=== PATIENT | male | born 1960 | race Caucasian/White ===

== ENCOUNTER 2020-03-21 13:30 | Emergency (ER) | payer OTHER, SELFPAY ==
[2020-03-21 13:40] VITALS: BP 114/67; PULSE 71; RESP 18; TEMP 36.8; O2SAT 96; BMI 21.5
--- NOTE | 2020-03-21 14:02 | ED_ITS ---
HPI - Fall General: Chief Complaint: Fall Stated Complaint: right foot pain/fall Time Seen by Provider: 03/21/20 13:42 History of Present Illness: HPI Narrative: 60-year-old male states that last night he was sitting in a recliner been sitting there for some time started to get some positional numbness of his foot when he went to get up and walk the foot remains numb and he actually tripped and stumbled has severe right foot pain has been only partial weightbearing on it. No previous injury of that foot is not taking anything for pain up to this point he had no other injuries at the time of the fall. Denies any other recent illnesses or injuries no exposure to COVID's review of systems is otherwise negative. MD complaint: fall Onset (ago): day(s) (1) Fall from: standing Fall witnessed: no Place fall occurred: home Loss of consciousness: None Prolonged down time: no Symptoms prior to fall: other (Numbness in extremity) Location of injury - extremities: Right: foot Severity: moderate Severity scale (1-10): 7 Quality: sharp Associated symptoms-after fall: Reports no associated symptoms; Denies abdominal pain or chest pain Review of Systems Const: Denies: fever(s), chills, body aches, change in appetite, fatigue or malaise ENMT: Denies: throat pain, ear or mastoid pain, nasal discharge or nasal congestion Card: Denies: chest pain, edema, dyspnea on exertion or orthopnea Resp: Denies: dyspnea, productive cough or non-productive cough GI: Denies: abdominal pain, nausea, vomiting, hematemesis, coffee ground emesis, diarrhea, constipation, bloating, hematochezia or melena : Denies: flank pain, dysuria, urinary frequency or urinary urgency Skin/Breast: Denies: rash or pruritus PFSH ED PFSH: Medical History (Updated 03/21/20 @ 14:31 by Joaquín Sommer DO) Concussion Hypertension Spinal cord injury Surgical History (Updated 03/21/20 @ 14:05 by Joaquín Sommer DO) H/O cervical spine surgery History of lumbosacral spine surgery Social History Smoking and tobacco status: current every day smoker Physical Exam Const: COMMON NORMALS: no acute distress GENERAL APPEARANCE: cooperative and comfortable ORIENTATION/CONSCIOUSNESS: Yes awake, Yes oriented to person, Yes oriented to place and Yes oriented to time Eye: COMMON NORMALS: Equal, round and reactive pupils present, EOMs intact bilaterally, conjunctivae normal and no scleral icterus CONJUNCTIVA: Yes conjunctivae normal PUPIL: Yes Equal, round and reactive pupils present Neck/C-Spine: COMMON NORMALS: full ROM, no lymphadenopathy, supple and no JVD Lymph: LYMPHATIC: no lymphadenopathy noted and no lymphedema noted Resp: COMMON NORMALS: normal respiratory effort, No retractions, No use of accessory muscles and clear to auscultation bilaterally AUSCULTATION: clear to auscultation bilaterally Cardio: COMMON NORMALS: no JVD, regular rate, regular rhythm and No murmurs present (Cardio) RATE: regular rate RHYTHM: regular rhythm GI: COMMON NORMALS: Soft to palpation and No hepatosplenomegaly present AUSCULTATION: Yes normoactive bowel sounds PALPATION: Yes Soft to palpation, No Tenderness to palpation present (GI), No Guarding due to palpation present (GI) and Yes No hepatosplenomegaly present Extremity: NARRATIVE EXTREMITY EXAM: With palpation of the forefoot at the tarsometatarsal joint with some prominence of the joint no edema. Neuro: SENSORIUM/ORIENTATION: Yes oriented to person, Yes oriented to place a nd Yes oriented to time Skin: COMMON NORMALS: no rashes or lesions noted GENERAL SKIN EXAM: no rashes or lesions noted Course Vital Signs: Vital signs: Vital Signs Temperature 98.2 F 03/21/20 13:40 Pulse Rate 70 03/21/20 15:07 Respiratory Rate 16 03/21/20 15:07 Blood Pressure 115/85 03/21/20 15:07 Pulse Oximetry 98 03/21/20 15:07 MDM - Fall MDM Narrative: Medical decision making narrative: No acute fracture. Rest ice elevation compression anti-inflammatories weightbearing as tolerated Imaging Data^: Other Xray: Radiologist's impression: PROCEDURE INFORMATION: Exam: XR Right Foot Complete Exam date and time: 03/21/2020 2:26 PM Age: 60 years old Clinical indication: Injury or trauma; Fall; Initial encounter; Blunt trauma; Right; Injury date: 03/20/2020; Injury details: Lateral foot pain; Additional info: Pain, trauma TECHNIQUE: Imaging protocol: XR Right foot. Views: 3 or more views. COMPARISON: No relevant prior studies available. FINDINGS: Bones/joints: Negative for acute bony abnormality Soft tissues: Normal. XR/XR foot RT min 3V* [id number] IMPRESSION: No acute findings. Dictated By: Hernandez España Discharge Plan Discharge Patient Disposition: Home, Self-Care Clinical Impression: Foot sprain Condition: Stable Prescriptions: New diclofenac sodium 75 mg tablet,delayed release (DR/EC) 75 mg PO Q12H PRN (Reason: pain) Qty: 20 RF: 0 Discharge Orders: Discharge Order (Routine); Ordered 03/21/20 Ordered By: Joaquín Sommer Referrals: Kevin Rey, [Primary Care Provider] - Discharge Diet: Usual diet Discharge Activity: Increase activity as tolerated Patient Instructions: Foot Sprain (ED) Discharge Date/Time: 03/21/20 15:09 Coding Level of Care Code ED Business Advisor for Jamee Fwd Exam Comprehensive
--- NOTE | 2020-03-21 14:06 | XRR_ITS ---
PROCEDURE INFORMATION: Exam: XR Right Foot Complete Exam date and time: 03/21/2020 2:26 PM Age: 60 years old Clinical indication: Injury or trauma; Fall; Initial encounter; Blunt trauma; Right; Injury date: 03/20/2020; Injury details: Lateral foot pain; Additional info: Pain, trauma TECHNIQUE: Imaging protocol: XR Right foot. Views: 3 or more views. COMPARISON: No relevant prior studies available. FINDINGS: Bones/joints: Negative for acute bony abnormality Soft tissues: Normal. XR/XR foot RT min 3V* [id number] IMPRESSION: No acute findings.
[2020-03-21] MEDS: HYDROcodone-acetaminophen 5-325 mg Tablet 2 TAB PO (14:18)
[2020-03-21 15:07] VITALS: BP 115/85; PULSE 70; RESP 16; O2SAT 98
== END 2020-03-21 15:09 | disposition home or self-care (01) ==
LOC: ER 14:43
PROVIDERS: Emergency Provider Family Medicine; PCP Emergency Medicine Emergency Medical Services
DX: S93.601A Unspecified sprain of right foot, initial encounter (principal); W01.0XXA Fall on same level from slipping, tripping and stumbling without subsequent striking against object, initial encounter; I10 Essential (primary) hypertension; F17.210 Nicotine dependence, cigarettes, uncomplicated
CPT/HCPCS: 12345; 73630; 99282; 99283

== ENCOUNTER 2020-05-09 09:20 | Outpatient (CLI) | payer OTHER, SELFPAY ==
--- NOTE | 2020-05-09 09:29 | CT_ITS ---
WS: [id number] CT ABDOMEN AND PELVIS WITH CONTRAST HISTORY: COMMON BILE DUCT DILATATION, ABNORMAL FINDINGS ON IMAGING TECHNIQUE: Imaging performed of the abdomen and pelvis with IV contrast. Single phase imaging of the abdomen. Coronal and sagittal reformats are submitted. All CT scans at [facility] use at least one of these dose optimization techniques: automated exposure control; mA and/or kV adjustment per patient size (includes targeted exams where dose is matched to clinical indication); or iterativ e reconstruction. IV CONTRAST: Omnipaque 300; 95 mL IV. Oral contrast: Yes. DLP: 1057.65 mGycm COMPARISON: None available. Lower thorax: Chronic emphysema the lung bases with mild dependent changes. No nodule. Heart is elias l size. No hiatal hernia. Liver/biliary system: Liver is normal size. There is mild central bile duct dilatation. Common bile d uct measures 12 mm. At the pancreatic head the common bile duct measures 9.4 mm. There is no filling defect identified. No mass at the pancreatic head. Gallbladder: Normal. No gallstones or wall thickening. No pericholecystic fluid. Pancreas: Common bile duct measures to 3 mm which is top normal. No pancreatic head mass Spleen: Top normal size at 13 cm in length. Adrenal glands: Normal. Right kidney: Multiple cysts and mild cortical thinning. Largest cyst from the upper pole measures 1. 5 cm. No obstruction or solid mass. Left kidney: Small cysts with the largest measuring 12 mm in the mid kidney. No obstruction. Aorta: Mild atherosclerosis of aorta. No aneurysm. RIGHT renal vein is retroaortic. Lymphadenopathy: None. Free fluid: None. GI tract: Mild diffuse constipation. The appendix is normal. There are a few scattered diverticula in the distal colon with no inflammation. Abdominal wall: Unremarkable abdominal wall. No hernia. Pelvis: Normal. Bones: Mild straightening of the normal lumbar lordosis. Degenerative disc disease is moderate at L4- 5 and L5-S1. Prior ORIF LEFT hip. Pain pump electrodes are noted over the lower thoracic region. Rajiv te RIGHT transverse process fractures at L2-[address]/CT abdomen pelvis w con* [id number] IMPRESSION: 1. Mild dilatation of the intrahepatic and extrahepatic bile ducts of uncertai n etiology. No common bile duct stone or pancreatic head mass is identified. Co nsider follow-up with ERCP or MRCP for further evaluation to exclude distal CBD stricture or mass near the ampulla of Vater. 2. Normal gallbladder. 3. Bilateral renal cysts. 4. Mild atherosclerosis aorta.
[2020-05-09] MEDS: iohexol 300 mg/mL 100 mL Btl IV (09:44)
== END 2020-05-09 09:21 | disposition home or self-care (01) ==
PROVIDERS: PCP Emergency Medicine Emergency Medical Services; Visit Provider Internal Medicine Gastroenterology
DX: K83.8 Other specified diseases of biliary tract (principal); R93.2 Abnormal findings on diagnostic imaging of liver and biliary tract; I70.0 Atherosclerosis of aorta; N28.1 Cyst of kidney, acquired
CPT/HCPCS: 74177; Q9967

== ENCOUNTER 2020-07-26 12:53 | Outpatient (CLI) | payer OTHER, SELFPAY | END 2020-07-26 12:54 | disposition home or self-care (01) | LOC: WOUND 12:56 | PROVIDERS: PCP Emergency Medicine Emergency Medical Services; Visit Provider Thoracic Surgery (Cardiothoracic Vascular Surgery) | DX: L97.521 Non-pressure chronic ulcer of other part of left foot limited to breakdown of skin (principal); L97.511 Non-pressure chronic ulcer of other part of right foot limited to breakdown of skin | CPT/HCPCS: 11042; G0463; L3260 ==

== ENCOUNTER 2020-08-02 14:13 | Outpatient (CLI) | payer OTHER, SELFPAY | END 2020-08-02 14:14 | disposition home or self-care (01) | LOC: WOUND 14:13 | PROVIDERS: PCP Emergency Medicine Emergency Medical Services; Visit Provider Thoracic Surgery (Cardiothoracic Vascular Surgery) | DX: L97.521 Non-pressure chronic ulcer of other part of left foot limited to breakdown of skin (principal); L97.511 Non-pressure chronic ulcer of other part of right foot limited to breakdown of skin | CPT/HCPCS: 11042 ==

== ENCOUNTER 2020-08-09 13:08 | Outpatient (CLI) | payer OTHER, SELFPAY | END 2020-08-09 13:09 | disposition home or self-care (01) | LOC: WOUND 13:08 | PROVIDERS: PCP Emergency Medicine Emergency Medical Services; Visit Provider Thoracic Surgery (Cardiothoracic Vascular Surgery) | DX: Z09 Encounter for follow-up examination after completed treatment for conditions other than malignant neoplasm (principal) | CPT/HCPCS: 99211 ==

== ENCOUNTER 2021-02-27 15:18 | Emergency (ER) | payer OTHER, SELFPAY ==
[2021-02-27 15:32] VITALS: BP 181/116; PULSE 71; RESP 18; TEMP 36.7; O2SAT 98; BMI 22.2
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
--- NOTE | 2021-02-27 16:06 | ECG_ITS ---
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 Measurements Intervals [place] Rate: 62 P: 76 OK: 171 QRS: 75 QRSD: 82 T: 74 QT: 426 QTc: 433 Interpretive Statements SINUS RHYTHM Compared to ECG 05/04/2018 20:19:15 No significant changes Electronically Signed On 02-27-2021 18:23:30 CDT by Clayton Castle M.D. [id number]
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
[2021-02-27 16:42] LABS: Basophils % 0.7 %; Eosinophils # 0.2 10^3/uL (0.0-0.8); Eosinophils % 2.5 %; Hematocrit 43.5 % (42.0-52.0); Hemoglobin 14.8 g/dL (11.7-16.6); Lymphocytes # 1.6 10^3/uL (0.8-4.8); Lymphocytes % 25.7 %; Mean Corpuscular Hemoglobin 32.2 pg (28.0-34.0); Mean Corpuscular Volume 94.8 fL (80-94); Mean Platelet Volume 9.7 fL (7.4-10.4); Monocytes # 0.4 10^3/uL (0.2-0.9); Monocytes % 6.5 %; Neutrophils # 3.88 10^3/uL (1.8-7.7); Neutrophils % 64.4 %; Nucleated Red Blood Cells % 0 %; Platelet Count 161 10^3/cmm (130-400); Red Blood Count 4.59 10^6/uL (4.1-5.3); Red Cell Distribution Width 12.4 % (12.1-15.1)
[2021-02-27 16:43] LABS: ABG PCO2 44.4 mmHg (35-45); ABG PH Result 7.37 (7.35-7.45); Alveolar-Arterial Oxygen Gradi 2.4 mmHg (5-10); Base Excess ABG -0.4 mmol/L (-2.0-2.0); Blood Gas Allen Test Pos; Blood Gas Operator Identificat CAK; Blood Gas Sample Site Radial, left; Blood Gas Sample Type Arterial; Carboxyhemoglobin 5.2 %THgb (0.4-20.1); HCO3 ABG 25.3 mmol/L (22-26); HGB O2 Sat 90.6 % (95-100); Ionized Calcium Level - ABG 1.2 mmol/L (1.1-1.4); Methemoglobin 0.8 % (0.4-1.5); Oxygen Device ROOM AIR; Oxygen Saturation ABG 96.4; PO2 ABG 77.1 mmHg (80.0-100.0); Potassium Level - ABG 3.7 mmol/L (3.5-5.0); Total Hemoglobin 14.4 g/dL (14-18)
[2021-02-27] MEDS: HYDROcodone-acetaminophen 5-325 mg Tablet 1 TAB PO (16:48)
[2021-02-27] MEDS: tetanus-dipt-pertussis 0.5 mL SDV IM (16:51)
[2021-02-27 18:13] VITALS: RESP 18; TEMP 36.7; O2SAT 98
== END 2021-02-27 18:14 | disposition home or self-care (01) ==
PROVIDERS: Emergency Provider Family Medicine; PCP Emergency Medicine Emergency Medical Services
DX: T23.261A Burn of second degree of back of right hand, initial encounter (principal); T23.262A Burn of second degree of back of left hand, initial encounter; T21.21XA Burn of second degree of chest wall, initial encounter; X08.8XXA Exposure to other specified smoke, fire and flames, initial encounter; I10 Essential (primary) hypertension; Z86.19 Personal history of other infectious and parasitic diseases; F17.210 Nicotine dependence, cigarettes, uncomplicated; Z23 Encounter for immunization
CPT/HCPCS: 36415; 36600; 71045; 80051; 82330; 82805; 85025; 90471; 90715; 93005; 99283

== ENCOUNTER 2021-03-09 14:32 | Emergency (ER) | payer OTHER, SELFPAY ==
[2021-03-09 14:54] VITALS: BP 133/78; PULSE 72; RESP 18; TEMP 36.9; O2SAT 94; BMI 22.2
[2021-03-09 15:01] VITALS: RESP 15
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
[2021-03-09] MEDS: morphine 4 mg/mL SDV 1 mL IM (15:33)
[2021-03-09] MEDS: dexamethasone 10 mg/mL INJ IM (15:36)
[2021-03-09 15:53] VITALS: RESP 15
== END 2021-03-09 16:01 | disposition home or self-care (01) ==
PROVIDERS: Emergency Provider Physician Assistant; PCP Emergency Medicine Emergency Medical Services
DX: M54.5 Low back pain (principal); M79.604 Pain in right leg; I10 Essential (primary) hypertension; Z86.19 Personal history of other infectious and parasitic diseases; F17.210 Nicotine dependence, cigarettes, uncomplicated
CPT/HCPCS: 96372; 99283; J1100; J2270

== ENCOUNTER 2021-09-28 06:00 | Outpatient (RCR) | payer OTHER, SELFPAY | END 2021-09-29 23:59 | disposition home or self-care (01) | LOC: SPT 06:00 | PROVIDERS: PCP Emergency Medicine Emergency Medical Services; Referring Provider Family Medicine; Visit Provider Family Medicine | DX: M54.16 Radiculopathy, lumbar region (principal) | CPT/HCPCS: 97161 ==

== ENCOUNTER 2021-09-30 06:00 | Outpatient (RCR) | payer OTHER, SELFPAY | END 2021-10-30 23:59 | disposition home or self-care (01) | LOC: SPT 06:00 | PROVIDERS: PCP Emergency Medicine Emergency Medical Services; Referring Provider Family Medicine; Visit Provider Family Medicine | DX: M54.16 Radiculopathy, lumbar region (principal) | CPT/HCPCS: 97113 ==

== ENCOUNTER 2021-10-31 06:00 | Outpatient (RCR) | payer OTHER, SELFPAY | END 2021-11-27 23:59 | disposition home or self-care (01) | LOC: SPT 06:00 | PROVIDERS: PCP Emergency Medicine Emergency Medical Services; Referring Provider Family Medicine; Visit Provider Family Medicine | DX: M54.16 Radiculopathy, lumbar region (principal) | CPT/HCPCS: 97113 ==

== ENCOUNTER 2021-11-28 06:00 | Outpatient (RCR) | payer OTHER, SELFPAY | END 2021-12-28 23:59 | disposition home or self-care (01) | LOC: SPT 06:00 | PROVIDERS: PCP Emergency Medicine Emergency Medical Services; Referring Provider Family Medicine; Visit Provider Family Medicine | DX: M54.16 Radiculopathy, lumbar region (principal) | CPT/HCPCS: 97110; 97113 ==

== ENCOUNTER 2021-12-29 06:00 | Outpatient (RCR) | payer OTHER, SELFPAY | END 2022-01-27 23:59 | disposition home or self-care (01) | LOC: SPT 06:00 | PROVIDERS: PCP Emergency Medicine Emergency Medical Services; Referring Provider Family Medicine; Visit Provider Family Medicine | DX: M54.16 Radiculopathy, lumbar region (principal) | CPT/HCPCS: 97110 ==

== ENCOUNTER 2022-03-04 16:23 | Emergency (ER) | payer OTHER, SELFPAY ==
--- NOTE | 2022-03-04 16:31 | XRR_ITS ---
PROCEDURE INFORMATION: Exam: XR Lumbosacral Spine Exam date and time: 03/04/2022 4:43 PM Age: 61 years old Clinical indication: Injury or trauma; Fall; Blunt trauma (contusions or hematomas); Prior surgery; Surgery date: 1-6 months; Additional info: Back pain TECHNIQUE: Imaging protocol: XR of the lumbosacral spine. Views: 2 or 3 views. COMPARISON: 1. CT Lumbar Spine w contra [id number] 09/02/2018 10:[address] abdomen pelvis w con* [id number] 05/09/2020 9:41 AM FINDINGS: Bones/joints: New posterior mechanical fusion from T10 through the S1 portion of the sacrum. Large screws transverse the sacroiliac joints. The T10 pedicle screws extend through the superior T10 endplate and extends partially into the T11 vertebral body. Anterior spacer at L5-S1. Intramedullary ashutosh and compression screw in the left femur. Moderate anterior wedge compression fracture of T12. Moderate anterior wedge compression fracture of T10. Multilevel degenerative endplate changes and disc space narrowing. Soft tissues: Unremarkable. XR/XR lumbar spine 2-3V* [id number] IMPRESSION: 1. Moderate age indeterminate T10 and T12 compression fractures. 2. T10-S1 mechanical fusion.
[2022-03-04 16:44] VITALS: BP 150/91; PULSE 74; RESP 16; TEMP 36.9; O2SAT 97; BMI 21.0
--- NOTE | 2022-03-04 16:57 | ED_ITS ---
HPI - Back Pain/Injury General: Chief Complaint: Back Pain/Injury Stated Complaint: BACK PAIN Time Seen by Provider: 03/04/22 16:31 History of Present Illness: 61-year-old male patient comes in today after losing his balance from standing and falling down striking his back against fra me of his door. Patient had recently had a lumbar fusion with cage placed from his lower thoracic to his sacrum. Patient did not have any pain meds at home because he had ran out of his morphine yesterday. Patient denies any fever or chills. Patient does report a poor appetite. No acute distress is noted. Associated symptoms: Deny fever(s), nausea or vomiting Review of Systems General: Reports: 10 or more systems reviewed and unremarkable except in HPI and below Const: Denies: fever(s) Card: Denies: chest pain Resp: Denies: dyspnea GI: Denies: nausea or vomiting : Denies: difficulty urinating Musc: Reports: back pain Skin/Breast: Denies: rash PFSH ED PFSH: Medical History Concussion Foot drop Hypertension Hypertension Peripheral arterial disease PTSD (post-traumatic stress disorder) Seizure disorder Spinal cord injury Viral hepatitis C Surgical History H/O cervical spine surgery History of lumbosacral spine surgery Social History Smoking and tobacco status: current every day smoker Physical Exam Const: COMMON NORMALS: alert HENMT: COMMON NORMALS: normocephalic HEAD & SCALP: normocephalic Neck/C-Spine: COMMON NORMALS: full ROM Resp: COMMON NORMALS: normal respiratory effort and clear to auscultation bilaterally AUSCULTATION: clear to auscultation bilaterally Cardio: COMMON NORMALS: regular rate RATE: regular rate Back/Pelvis: THORACIC SPINE/UPPER BACK: Yes other soft tissue findings (Healing incision line with sutures intact.) LUMBAR SPINE/LOWER BACK: Yes other soft tissue findings (Healing incision line with sutures intact) Extremity: COMMON NORMALS: normal to inspection Neuro: SENSORIUM/ORIENTATION: Yes alert Skin: COMMON NORMALS: turgor normal GENERAL SKIN EXAM: turgor normal Course Vital Signs: Vital signs: Vital Signs Temperature 98.4 F 03/04/22 16:44 Pulse Rate 74 03/04/22 16:44 Respiratory Rate 20 H 03/04/22 18:22 Blood Pressure 150/91 03/04/22 16:44 Pulse Oximetry 97 03/04/22 16:44 MDM - Back Pain/Injury Medical Decision Making 61-year-old male patient was brought in by EMS for concerns of injury to the back. Patient recently had surgery with a spinal fusion from T10-S1. Patient reports some back pain. Patient appears well. Patient appears in no acute distress. Patient was found to have bedbugs. Respirations were even lungs were clear to auscultation. Abdomen soft nontender. Differential diagnosis includes but not limited to fracture, hardware failure, anemia, dehydration. Laboratory values did note some mild anemia this is might be due to his recent surgery for his fusion of his spine. Patient was written for short course of hydrocodone for running out of his morphine from his surgeon. Patient did know of the bedbug infestation in his house. Patient was released to home and need for follow-up with primary care. Labs : 03/04/22 18:27 03/04/22 18:27 Radiology Impressions Lumbar Spine X-Ray 03/04/22 16:31 IMPRESSION: 1. Moderate age indeterminate T10 and T12 compression fractures. 2. T10-S1 mechanical fusion. Laboratory Results WBC 4.4 10^3/uL (4.0-10.0) 03/04/22 18: RBC 3.29 10^6/uL (4.1-5.3) L 03/04/22 18: Hgb 9.6 g/dL (11.7-16.6) L 03/04/22 18: Hct 29.8 % (42.0-52.0) L 03/04/22 18: MCV 90.6 fl (80-94) 03/04/22 18: MCH 29.2 pg (28.0-34.0) 03/04/22 18: MCHC 32.2 g/dL (30.0-36.0) 03/04/22 18: RDW 13.2 % (12.1-15.1) 03/04/22 18: Plt Count 190 10^3/cmm (130-400) 03/04/22 18: MPV 9.3 fL (7.4-10.4) 03/04/22 18: Neut % (Auto) 72.6 % 03/04/22 18: Lymph % (Auto) 20.9 % 03/04/22 18: [place] % (Auto) 5.9 % 03/04/22 18: Eos % (Auto) 0.2 % 03/04/22 18: Baso % (Auto) 0.2 % 03/04/22 18: Neut # (Auto) 3.20 10^3/uL (1.8-7.7) 03/04/22: Lymph # (Auto) 0.9 10^3/uL (0.8-4.8) 03/04/22: [place] # (Auto) 0.3 10^3/uL (0.2-0.9) 03/04/22 18: Eos # (Auto) 0.0 10^3/uL (0.0-0.8) 03/04/22: Baso # (Auto) 0.0 10^3/uL (0.0-0.1) 03/04/22 18: Nucleated RBC % (auto) 0 % 03/04/22: Nucleated RBCs # 0.0 /100WBC 03/04/22 18: Sodium 135 mmol/L (136-145) L 03/04/22 18: Potassium 3.7 mmol/L (3.5-5.1) 03/04/22 18: Chloride 102 mmol/L (98-107) 03/04/22 18: Carbon Dioxide 25 mmol/L (22-29) 03/04/22 18: Anion Gap 11.7 (5-19) 03/04/22 18: BUN 5 mg/dL (8-23) L 03/04/22: Creatinine 0.9 mg/dL (0.7-1.2) 03/04/22: GFR Calculation 86.1 mL/min (90-130) L 03/04/22 18: Glucose 98 mg/dL (65-115) 03/04/22 18: Calculated Osmolality 277 mOsm/kg (285-295) L 06/05/22 18:27 Calcium 8.7 mg/dL (8.5-10.5) 03/04/22 18:27 Discharge Plan Discharge Patient Disposition: Home Clinical Impression: Fall from standing Qualifiers: Encounter type: initial encounter Qualified Code(s): W19.XXXA - Unspecified fall, initial encounter Back pain Qualifiers: Back pain location: low back pain Chronicity: unspecified Back pain laterality: unspecified Sciatica presence: without sciatica Qualified Code(s): M54.50 - Low back pain, unspecified Condition: Stable Prescriptions: New hydrocodone-acetaminophen 7.5-325 mg tablet 1 tab PO Q6H PRN (Reason: pain) Qty: 14 0RF No Action bupropion HCl 300 mg tablet extended release 24 hr 300 mg PO DAILY 0RF cholecalciferol (vitamin D3) 25 mcg (1,000 unit) capsule 25 mcg PO DAILY 0RF cyclobenzaprine 10 mg tablet 10 mg PO TID 0RF levetiracetam 750 mg tablet 750 mg PO BID 0RF metoprolol tartrate 25 mg tablet 12.5 mg PO BID 0RF B Complex 1 tab PO DAILY 0RF buspirone 15 mg Tablet 15 mg PO BID 0RF duloxetine 60 mg Capsule, Delayed Rel Sprinkle 60 mg PO BID 0RF [place] 3 1 tab PO DAILY 0RF Vitamin B-12 1 tab PO DAILY 0RF Discharge Orders: Discharge ED (Routine); Ordered 03/04/22 Ordered By: Omer Cervantes Referrals: Kevin Rey, [Primary Care Provider] - Discharge Diet: Usual diet Discharge Activity: Increase activity as tolerated Patient Instructions: Back Pain (ED), Opioid Safety Activity Restrictions/Additional Instructions: You should use a walker or cane to assist with ambulation while healing from surgery. Drink plenty of fluids and eat a healthy diet to encourage good healing. Follow-up with primary care for further instructions and refills on medication. Follow-up with surgeon for further discussion. Return to ER for new concerns. Coding Level of Care Code ED Film Tests Checker for Jamee Fwmer Exam Comprehensive
[2022-03-04] MEDS: sodium chloride 0.9% 500 ML 999 ML IV (18:18)
[2022-03-04] MEDS: orphenadrine 30 mg/mL Inj 2 mL 60 MG IVP (18:21)
[2022-03-04 18:22] VITALS: RESP 20
[2022-03-04] MEDS: morphine 4 mg/mL SDV 1 mL IVP (18:22)
[2022-03-04] MEDS: ketorolac 30 mg/mL INJ 15 MG IVP (18:24)
[2022-03-04 18:42] LABS: Basophils % 0.2 %; Eosinophils % 0.2 %; Hematocrit 29.8 % (42.0-52.0); Hemoglobin 9.6 g/dL (11.7-16.6); Lymphocytes # 0.9 10^3/uL (0.8-4.8); Lymphocytes % 20.9 %; Mean Corpuscular HGB Conc 32.2 g/dL (30.0-36.0); Mean Corpuscular Hemoglobin 29.2 pg (28.0-34.0); Mean Corpuscular Volume 90.6 fl (80-94); Mean Platelet Volume 9.3 fL (7.4-10.4); Monocytes # 0.3 10^3/uL (0.2-0.9); Monocytes % 5.9 %; Neutrophils % 72.6 %; Nucleated Red Blood Cells % 0 %; Platelet Count 190 10^3/cmm (130-400); Red Blood Count 3.29 10^6/uL (4.1-5.3); Red Cell Distribution Width 13.2 % (12.1-15.1); White Blood Count 4.4 10^3/uL (4.0-10.0)
[2022-03-04 19:02] LABS: Anion Gap 11.7 (5-19); Blood Urea Nitrogen 5 mg/dL (8-23); Calcium 8.7 mg/dL (8.5-10.5); Carbon Dioxide 25 mmol/L (22-29); Chloride 102 mmol/L (98-107); Glomerular Filtration Rate 86.1 mL/min (90-130); Glucose 98 mg/dL (65-115); Osmolality Calculated 277 mOsm/kg (285-295); Potassium 3.7 mmol/L (3.5-5.1); Sodium 135 mmol/L (136-145)
[2022-03-04 20:30] VITALS: BP 126/79; PULSE 82; RESP 20; O2SAT 98
== END 2022-03-04 20:31 | disposition home or self-care (01) ==
PROVIDERS: Emergency Provider Nurse Practitioner Family; PCP Emergency Medicine Emergency Medical Services
DX: M54.50 Low back pain, unspecified (principal); Z98.1 Arthrodesis status
CPT/HCPCS: 72100; 80048; 85025; 96361; 96374; 96375; 99284; J1885; J2270; J2360; J7040

== ENCOUNTER → 2022-05-14 15:00 | Outpatient (BNVA) | payer OTHER, SELFPAY | PROVIDERS: PCP Emergency Medicine Emergency Medical Services; Visit Provider Surgery | DX: R63.4 Abnormal weight loss (principal); R13.10 Dysphagia, unspecified | CPT/HCPCS: 99203 ==

== ENCOUNTER 2022-05-29 11:37 | Outpatient (CLI) | payer OTHER, SELFPAY ==
--- NOTE | 2022-05-29 11:52 | CT_ITS ---
WS: [id number] CT ABDOMEN PELVIS TECHNIQUE: Noncontrast CT of the abdomen and pelvis with coronal and sagittal reformatted images. CLINICAL INFORMATION: ANEMIA/WEIGHT LOSS/CONSTIPATION COMPARISON: CT May 09, 2020 DLP: 867.[address] scans at [facility] use at least one of these dose optimization techniques: automated e xposure control; mA and/or kV adjustment per patient size (includes targeted exams where dose is matc hed to clinical indication); or iterative reconstruction. FINDINGS: Normal noncontrast liver. Mild intrahepatic and extra hepatic biliary dilatation unchanged from previ ous. This is similar to previous. This extensive spinal fusion is new from previous with thoracolumba r fusion bilateral sacroiliac fusion. Possible calculus near the proximal common bile duct suspicious for choledocholithiasis measuring 6 mm. Images degraded in this area due to beam hardening artifact from spinal hardware. Common bile duct measures 10 mm. This can be further evaluated with MRCP or ERC P. Gallbladder otherwise appears unremarkable. This can be further evaluated with ultrasound. Noncalcified nodule RIGHT upper lobe measuring 5 mm. Tiny noncalcified nodule RIGHT lower lobe. Subse gmental atelectasis in the lung bases. Tiny noncalcified nodule LEFT upper lobe. Normal GE junction. Air-fluid level in the stomach and proximal duodenum. Adrenal glands are normal. Normal caliber abdominal aorta.Aortic calcification. Tiny fat-containing umbilical hernia. No evidence of high-grade small or large bowel obstruction. Uri ne distended bladder. Anterior wedging with compression of the T12 vertebral body. Normal noncontrast spleen. Adrenal glands are normal. No hydronephrosis in either kidney. Nonobstructing LEFT calyceal tip calculi. CT/CT abdomen pelvis wo con [id number] IMPRESSION: 1. Extensive thoracolumbar fusion is new from previous. 2. Beam hardening artifact Degrades some images. Laminectomy defects in the jasmyne mbar spine. 3. Stable mild intrahepatic biliary ductal dilatation with mild dilatation com mon bile duct measuring 10 mm is unchanged. Possible calculus measuring 6 mm pr oximal common bile duct. This can be further evaluated with MRCP or ERCP. 4. Fluid distended gallbladder. Gallbladder can be further evaluated with ultr asound. 5. No hydronephrosis in either kidney. 6. Urine distended bladder. 7. A few noncalcified nodules in the lung bases described above. Recommend 12 month follow-up. 8. Spinal stimulator extending cephalad off the [id number]. 9. No other remarkable changes.
[2022-05-29] MEDS: barium sulfate 450 mL Oral Susp PO (14:14)
== END 2022-05-29 11:38 | disposition home or self-care (01) ==
PROVIDERS: PCP Family Medicine; Visit Provider Family Medicine
DX: D64.9 Anemia, unspecified (principal); R63.4 Abnormal weight loss; K59.00 Constipation, unspecified; R91.8 Other nonspecific abnormal finding of lung field
CPT/HCPCS: 74176

== ENCOUNTER → 2022-06-11 15:19 | Outpatient (BNVA) | payer OTHER, SELFPAY | PROVIDERS: PCP Family Medicine; Visit Provider Podiatrist Foot & Ankle Surgery | DX: I73.9 Peripheral vascular disease, unspecified (principal); L60.3 Nail dystrophy; G62.9 Polyneuropathy, unspecified; M21.372 Foot drop, left foot | CPT/HCPCS: 11721 ==

== ENCOUNTER 2022-08-10 07:46 | Outpatient (CLI) | payer OTHER, SELFPAY ==
--- NOTE | 2022-08-10 08:00 | MR_ITS ---
WS: [id number] MRI/MRCP OF THE ABDOMEN WITHOUT GADOLINIUM ENHANCEMENT TECHNIQUE: Thin and thick slab MRCP, Axial T2, Coronal MRCP, Axial Dual Echo, and Axial 2-D Fiesta imaging was obtained. Coronal 2-D Fiesta imaging. CLINICAL INFORMATION: K83.8 - Other specified diseases of biliary tract COMPARISON: CT May 29, 2022 FINDINGS: Some images are degraded due to extensive spinal fusion. Fluid distended gallbladder. Cholelithiasis. Prominent gallbladder calculus measuring 1.9 cm. Dilated tortuous common bile duct. Common bile duct measures 12 mm. Lobulated or 2 adjacent small calculi in the common bile duct measuring 6 to 7 mm. Normal pancreatic duct. No intrahepatic biliary ductal dilatation. Suggestion of additional tiny calc ulus along the proximal common bile duct measuring 3 mm. No evidence of pancreatic head mass. RIGHT upper pole renal cyst measuring 1.9 CM. Small RIGHT lower pole renal cyst. LEFT upper pole angela l cyst measuring 1.8 cm. No hydronephrosis in either kidney. Normal spleen. Adrenal glands are normal . Normal GE junction MR/MR MRCP [id number] Impression: 1. Fluid distended gallbladder with cholelithiasis. Largest calculus measures 1.9 cm. No gallbladder wall thickening or pericholecystic fluid. 2. Dilated common bile duct measuring 12 mm. 2 small adjacent calculi or lobul ated single calculus in the distal common bile duct measuring 6 to 7 mm in tota l. Suggestion of additional smaller proximal common bile duct calculus measurin g 3 mm. This could be further evaluated with ERCP. 3. Normal pancreatic duct. No pancreatic lesions. 4. Small renal cysts. 5. No other acute findings.
== END 2022-08-10 07:47 | disposition home or self-care (01) ==
LOC: RAD 07:51
PROVIDERS: PCP Family Medicine; Visit Provider Surgery
DX: K83.8 Other specified diseases of biliary tract (principal); R63.4 Abnormal weight loss; Q61.02 Congenital multiple renal cysts
CPT/HCPCS: 74181

== ENCOUNTER → 2022-12-06 08:46 | Outpatient (BNVA) | payer OTHER, SELFPAY | PROVIDERS: PCP Family Medicine; Visit Provider Podiatrist Foot & Ankle Surgery | DX: L60.0 Ingrowing nail (principal); L60.3 Nail dystrophy; G62.9 Polyneuropathy, unspecified; I73.9 Peripheral vascular disease, unspecified; M21.372 Foot drop, left foot | CPT/HCPCS: 11721 ==

== ENCOUNTER 2023-04-08 11:29 | Outpatient (CLI) | payer OTHER, SELFPAY ==
--- NOTE | 2023-04-08 11:37 | XR_ITS ---
WS: [id number] XR thoracic spine 2V [id number] REASON FOR EXAM: LUMBAR RADICULOPATHY, LUMBAR STENOSIS FINDINGS: Pedicle screws and interconnecting rods extending from pelvic oblique screws at T6. Additional connec ting rods T7 to T11/12. No pedicle screws at T10-T11 where there are compression deformities. There are compression deformities of T6, T9, and T12. Surgical appliances are intact and in proper position and alignment. XR/XR thoracic spine 2V [id number] IMPRESSION: Posterior thoracolumbar fusion T6 to pelvis S2.
--- NOTE | 2023-04-08 11:37 | XR_ITS ---
WS: [id number] XR lumbar spine 2-3V* [id number] REASON FOR EXAM: KYPHOSIS OF THORACIC REGION, UNSPECIFIED FINDINGS: Pedicle screws and interconnecting bars from T6 to oblique pelvic screws at S2. Interbody fusion device at L5-S1. Compression deformity of T12. No change from 03/04/2022 Surgical appliances appear intact and in proper position and alignment. XR/XR lumbar spine 2-3V* [id number] IMPRESSION: Posterior thoracolumbar fusion as above.
== END 2023-04-08 11:30 | disposition home or self-care (01) ==
PROVIDERS: PCP Family Medicine; Visit Provider Surgery
DX: M54.16 Radiculopathy, lumbar region (principal); M40.204 Unspecified kyphosis, thoracic region; S22.080G Wedge compression fracture of T11-T12 vertebra, subsequent encounter for fracture with delayed healing; X58.XXXD Exposure to other specified factors, subsequent encounter; M48.061 Spinal stenosis, lumbar region without neurogenic claudication; Z98.890 Other specified postprocedural states
CPT/HCPCS: 72070; 72100

== ENCOUNTER 2023-11-19 11:18 | Emergency (ER) | payer OTHER, SELFPAY ==
[2023-11-19 11:29] VITALS: BP 162/111; PULSE 66; RESP 16; TEMP 36.9; O2SAT 95; BMI 22.9
--- NOTE | 2023-11-19 11:33 | ECG_ITS ---
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 Measurements Intervals [place] Rate: 61 P: 68 LA: 126 QRS: 68 QRSD: 90 T: 61 QT: 437 QTc: 443 Interpretive Statements SINUS RHYTHM Compared to ECG 02/27/2021 17:30:47 No significant changes Electronically Signed On 11-19-2023 13:31:52 EDUCATIONAL ADVISER by Clayton Castle M.D. [id number]
--- NOTE | 2023-11-19 11:33 | XRR_ITS ---
PROCEDURE INFORMATION: Exam: XR Chest Exam date and time: 11/19/2023 11:57 AM Age: 63 years old Clinical indication: Dyspnea TECHNIQUE: Imaging protocol: Radiologic exam of the chest. Views: 1 view. COMPARISON: CR XR chest 1V portable [id number] 02/27/2021 4:13 PM FINDINGS: Lungs: Features of pulmonary emphysema and interstitial coarsening again noted. No acute pulmonary pathology. Pleural spaces: No pleural effusion. Heart/Mediastinum: Cardiomediastinal contours within normal limits. Bones/joints: Interval removal of thoracic spinal stimulator and interval placement thoracolumbar spine fusion rods. XR/XR chest 1V portable [id number] IMPRESSION: Pulmonary emphysema and interstitial lung disease again noted; no acute pulmonary pathology or significant interval change in the lungs.
[2023-11-19 12:16] LABS: Basophils % 0.4 %; Eosinophils # 0.1 10^3/uL (0.0-0.8); Eosinophils % 1.1 %; Lymphocytes # 0.9 10^3/uL (0.8-4.8); Lymphocytes % 20.9 %; Mean Corpuscular HGB Conc 32.2 g/dL (30-55); Mean Corpuscular Hemoglobin 29.9 pg (27-33); Mean Platelet Volume 10.1 fL (7.4-10.4); Monocytes # 0.3 10^3/uL (0.2-0.9); Monocytes % 6.2 %; Neutrophils # 3.21 10^3/uL (1.8-7.7); Neutrophils % 71.4 %; Nucleated Red Blood Cells % 0 %; Platelet Count 162 10^3/cmm (157-399); Red Blood Count 4.41 10^6/uL (3.85-5.65); Red Cell Distribution Width 14.6 % (12.1-15.1)
[2023-11-19 12:33] LABS: Troponin(5th) Baseline 15 ng/L (0-15)
[2023-11-19 12:54] LABS: Alanine Aminotransferase 6 U/L (0-41); Albumin Level 3.9 g/dL (3.5-5.2); Alkaline Phosphatase 114 U/L (40-130); Blood Urea Nitrogen 13 mg/dL (8-23); Calcium 8.8 mg/dL (8.5-10.5); Carbon Dioxide 22 mmol/L (22-29); Chloride 104 mmol/L (98-107); Globulin 3.2 g/dL (1.3-4.6); Glomerular Filtration Rate 85.5 mL/min (90-130); Glucose 100 mg/dL (65-115); NT Pro B Type Natriuretic Pept 348 pg/mL (0-125); Osmolality Calculated 284 mOsm/kg (285-295); Sodium 137 mmol/L (136-145); Total Bilirubin 0.3 mg/dL (0.15-1.2); Total Protein 7.1 g/dL (6.6-8.7)
[2023-11-19 12:56] LABS: Anion Gap 15.4 (5-19); Aspartate Amino Transferase 16 U/L (0-40); Potassium 4.4 mmol/L (3.5-5.1)
[2023-11-19 13:04] VITALS: O2SAT 93; O2SAT 95
--- NOTE | 2023-11-19 13:25 | ED_ITS ---
HPI - SOB/Dyspnea 2 General: Chief Complaint: Shortness of Breath/Dyspnea Stated Complaint: sob Time Seen by Provider: 11/19/23 11:36 Source: patient Mode of arrival: ambulatory History of Present Illness: HPI Narrative: 63-year-old male presents emergency room with shortness of breath worse with activity has been going on for several months he has been seen for it did put him on albuterol he states it does not seem to be working he is also on metoprolol. He does continue to smoke until today he said he did not smoke at all today. He denies any fever sweats chills. He occasionally will get some mild chest discomfort but not associated with activity. MD elicited complaint: shortness of breath and cough Pertinent past history: COPD Onset (ago): month(s) Timing: intermittent Severity: mild Exacerbating factors: exertion and coughing Relieving factors: nothing Known history of: COPD Associated symptoms: Reports cough; Deny abdominal pain, chest congestion, chest pain, diaphoresis, dizziness, extremity pain, fever(s), hemoptysis, lightheadedness, myalgias, nausea, orthopnea, palpitations, paresthesias, polydipsia, polyuria, rash, sense of impending doom, syncope or vomiting Treatment prior to arrival: bronchodilator Review of Systems 2 Const: Denies: fever(s) or diaphoresis Card: Denies: chest pain, palpitations, lightheadedness, syncope or orthopnea Resp: Denies: hemoptysis or chest congestion GI: Denies: abdominal pain, nausea or vomiting : Denies: dysuria, urinary frequency or urinary urgency Musc: Denies: extremity pain Skin/Breast: Denies: rash Neuro: Denies: dizziness Endo: Denies: polyuria or polydipsia PFSH ED 2 PFSH: Medical History Hypertension PTSD (post-traumatic stress disorder) Viral hepatitis C Seizure disorder Foot drop Peripheral arterial disease Hypertension Concussion Spinal cord injury Surgical History History of lumbosacral spine surgery H/O cervical spine surgery Social History Smoking and tobacco/nicotine status: current every day tobacco/nicotine user Physical Exam 2 Const: GENERAL APPEARANCE: cooperative and comfortable O RIENTATION/CONSCIOUSNESS: Yes awake, Yes oriented to person, Yes oriented to place and Yes oriented to time HENMT: COMMON NORMALS: normocephalic, atraumatic and hearing grossly normal bilaterally HEAD & SCALP: normocephalic and atraumatic Resp: COMMON NORMALS: normal respiratory effort, No retractions and No use of accessory muscles AUSCULTATION: rhonchi and wheezes Cardio: COMMON NORMALS: regular rate, regular rhythm and No murmurs present (Cardio) RATE: regular rate RHYTHM: regular rhythm GI: COMMON NORMALS: Soft to palpation and No hepatosplenomegaly present A USCULTATION: Yes normoactive bowel sounds PALPATION: Yes Soft to palpation, No Tenderness to palpation present (GI), No Guarding due to palpation present (GI) and Yes No hepatosplenomegaly present : COMMON NORMALS: Yes no CVA tenderness BLADDER/KIDNEY EXAM: Yes no CVA tenderness Back/Pelvis: COMMON NORMALS: no CVA tenderness Extremity: COMMON NORMALS: normal to inspection, capillary refill normal, no clubbing, cyanosis or edema, no calf tenderness and no pedal edema Neuro: SENSORIUM/ORIENTATION: Yes oriented to person, Yes oriented to place and Yes oriented to time Skin: COMMON NORMALS: no rashes or lesions noted GENERAL SKIN EXAM: no rashes or lesions noted Course 2 Vital Signs: Vital signs: Vital Signs Temperature 98.5 F 11/19/23 11:29 Pulse Rate 66 11/19/23 11:29 Respiratory Rate 16 11/19/23 11:29 Blood Pressure 162/111 11/19/23 11:29 Pulse Oximetry 95 11/19/23 13:04 Oxygen Delivery Me thod Room Air 11/19/23 11:29 MDM - SOB/Dyspnea Medical Decision Making No acute findings. EKG shows normal sinus rhythm without acute ST changes. Chest x-ray shows chronic changes of COPD but no acute infiltrates or effusions. Will start him on Spiriva and Symbicort and refer him to pulmonology. Medical Records I reviewed the patient's medical records. Lab Data I reviewed the patient's lab results. 11/19/23 11:50 11/19/23 11:50 Labs/Radiology: Radiology Impressions Chest X-Ray 11/19/23 11:33 IMPRESSION: Pulmonary emphysema and interstitial lung disease again noted; no acute pulmonary pathology or significant interval change in the lungs. Laboratory Results WBC 4.50 10^3/uL (3.29-11.43) 11/19/23 11:50 RBC 4.41 10^6/uL (3.85-5.65) 11/19/23 11:50 Hgb 13.20 g/dL (11.27-16.99) 11/19/23 11:50 Hct 41.0 % (37-53) 11/19/23 11:50 MCV 93.0 fl (82-101) 11/19/23 11:50 MCH 29.9 pg (27-33) 11/19/23 11:50 MCHC 32.2 g/dL (30-55) 11/19/23 11:50 RDW 14.6 % (12.1-15.1) 11/19/23 11:50 Plt Count 162 10^3/cmm (157-399) 11/19/23 11:50 MPV 10.1 fL (7.4-10.4) 11/19/23 11:50 Neut % (Auto) 71.4 % 11/19/23 11:50 Lymph % (Auto) 20.9 % 11/19/23 11:50 [place] % (Auto) 6.2 % 11/19/23 11:50 Eos % (Auto) 1.1 % 11/19/23 11:50 Baso % (Auto) 0.4 % 11/19/23 11:50 Neut # (Auto) 3.21 10^3/uL (1.8-7.7) 11/19/23 11:50 Lymph # (Auto) 0.9 10^3/uL (0.8-4.8) 11/19/23 11:50 [place] # (Auto) 0.3 10^3/uL (0.2-0.9) 11/19/23 11:50 Eos # (Auto) 0.1 10^3/uL (0.0-0.8) 11/19/23 11:50 Baso # (Auto) 0.0 10^3/uL (0.0-0.1) 11/19/23 11:50 Nucleated RBC % (auto) 0 % 11/19/23 11:50 Nucleated RBCs # 0.0 /100WBC 11/19/23 11:50 PT 13.50 SECONDS (12.1-14.9) 11/19/23 11:50 INR 1.00 (0.8-1.2) 11/19/23 11:50 Sodium 137 mmol/L (136-145) 11/19/23 11:50 Potassium 4.4 mmol/L (3.5-5.1) 11/19/23 11:50 Chloride 104 mmol/L (98-107) 11/19/23 11:50 Carbon Dioxide 22 mmol/L (22-29) 11/19/23 11:50 Anion Gap 15.4 (5-19) 11/19/23 11:50 BUN 13 mg/dL (8-23) 11/19/23 11:50 Creatinine 0.9 mg/dL (0.7-1.2) 11/19/23 11:50 GFR Calculation 85.5 mL/min (90-130) L 11/19/23 11:50 Glucose 100 mg/dL (65-115) 11/19/23 11:50 Calculated Osmolality 284 mOsm/kg (285-295) L 11/19/23 11:50 Calcium 8.8 mg/dL (8.5-10.5) 11/19/23 11:50 Total Bilirubin 0.3 mg/dL (0.15-1.2) 11/19/23 11:50 AST 16 U/L (0-40) 11/19/23 11:50 ALT 6 U/L (0-41) 11/19/23 11:50 Alkaline Phosphatase 114 U/L (40-130) 11/19/23 11:50 Troponin T Baseline 15 ng/L (0-15) 11/19/23 11:50 NT-Pro-B Natriuret Pep 348 pg/mL (0-125) H 11/19/23 11:50 Total Protein 7.1 g/dL (6.6-8.7) 11/19/23 11:50 Albumin 3.9 g/dL (3.5-5.2) 11/19/23 11:50 Globulin 3.2 g/dL (1.3-4.6) 11/19/23 11:50 All radiology interpretation(s) finalized by discharge Discharge Plan Discharge Patient Disposition: Home Clinical Impression: COPD (chronic obstructive pulmonary disease) Condition: Stable Prescriptions: New Spiriva Respimat 1.25 mcg/actuation mist 2 inh inhalation DAILY Qty: 4 0RF Symbicort 80-4.5 mcg/actuation HFA aerosol inhaler 2 inh inhalation BID Qty: 10.2 0RF albuterol sulfate 90 mcg/actuation HFA aerosol inhaler 2 inh INHALATION Q4H PRN (Reason: shortness of breath or wheezing) Qty: 18 0RF No Action bupropion HCl 300 mg tablet extended release 24 hr 300 mg PO DAILY cholecalciferol (vitamin D3) 25 mcg (1,000 unit) capsule 25 mcg PO DAILY cyclobenzaprine 10 mg tablet 10 mg PO TID levetiracetam 750 mg tablet 750 mg PO BID metoprolol tartrate 25 mg tablet 12.5 mg PO BID (DME) Orthopedic Shoes with custom insoles See Rx Instructions .Route .MEDSUPPLY Qty: 1 0RF Rx Instructions: As directed by AMY&O B Complex 1 tab PO DAILY buspirone 15 mg Tablet 15 mg PO BID duloxetine 60 mg Capsule, Delayed Rel Sprinkle 60 mg PO BID [place] 3 1 tab PO DAILY Vitamin B-12 1 tab PO DAILY hydrocodone-acetaminophen 7.5-325 mg tablet 1 tab PO Q6H PRN (Reason: pain) Qty: 14 0RF Discharge Orders: Discharge ED (Routine); Ordered 11/19/23 Ordered By: Joaquín Sommer Referrals: Alisa Kerns MD [Primary Care Provider] - Patient Instructions: Opioid Safety, Pain Management, COPD (Chronic Obstructive Pulmonary Disease) (ED) Activity Restrictions/Additional Instructions: Thank you for choosing [facility] for your healthcare needs today. Please realize this is an emergency room and that we are providing you with a medical screening exam and this may not be complete and all inclusive of all the testing and or work up that you may need to determine your ailment or severity of your illness. It is very important that you follow up as instructed or that you return to the Emergency Department should you have concerns or if your condition changes or worsens in any way. Case management will make arrangements for her to follow-up with pulmonology to further manage her chronic respiratory issues. Coding Level of Care Code ED Kennel Technician for Jamee Ortiz
--- NOTE | 2023-11-19 13:31 | ED_ITS ---
HPI - SOB/Dyspnea 2 General: Chief Complaint: Shortness of Breath/Dyspnea Stated Complaint: sob Time Seen by Provider: 11/19/23 11:36 Source: patient Mode of arrival: ambulatory History of Present Illness: HPI Narrative: 61-year-old male presents emergency room complaining of shortness of breath with any activities been going on for years progressively worsening last few months has been quite a bit more difficult. No fever sweats or chills chronic baseline cough with clear productive sputum remains unchanged. No hemoptysis. Denies chest pain. He is only been using albuterol at home which has not been improving symptoms recently. Pertinent past history: COPD Severity: mild Exacerbating factors: exertion and coughing Relieving factors: nothing Associated symptoms: Deny abdominal pain, chest pain or fever(s) Treatment prior to arrival: bronchodilator Review of Systems 2 Const: Denies: fever(s) or chills Card: Reports: dyspnea on exertion; Denies: chest pain Resp: Reports: dyspnea and productive cough (Chronic baseline) GI: Denies: abdominal pain : Denies: dysuria, urinary frequency or urinary urgency Musc: Denies: neck pain or back pain Skin/Breast: Denies: rash PFSH ED 2 PFSH: Medical History Hypertension PTSD (post-traumatic stress disorder) Viral hepatitis C Seizure disorder Foot drop Peripheral arterial disease Hypertension Concussion Spinal cord injury Surgical History History of lumbosacral spine surgery H/O cervical spine surgery Social History Smoking and tobacco/nicotine status: current every day tobacco/nicotine user Physical Exam 2 Const: COMMON NORMALS: no acute distress GENERAL APPEARANCE: cooperative and comfortable ORIENTATION/CONSCIOUSNESS: Yes awake, Yes oriented to person, Yes oriented to place and Yes oriented to time HENMT: COMMON NORMALS: normocephalic, atraumatic and hearing grossly normal bilaterally HEAD & SCALP: normocephalic and atraumatic Resp: COMMON NORMALS: normal respiratory effort, No retractions and No use of accessory muscles AUSCULTATION: wheezes Cardio: COMMON NORMALS: regular rate, regular rhythm and No murmurs present (Cardio) RATE: regular rate RHYTHM: regular rhythm GI: COMMON NORMALS: Soft to palpation and No hepatosplenomegaly present A USCULTATION: Yes normoactive bowel sounds PALPATION: Yes Soft to palpation, No Tenderness to palpation present (GI), No Guarding due to palpation present (GI) and Yes No hepatosplenomegaly present Extremity: COMMON NORMALS: normal to inspection, capillary refill normal, no clubbing, cyanosis or edema, no calf tenderness and no pedal edema Neuro: SENSORIUM/ORIENTATION: Yes oriented to person, Yes oriented to place and Yes oriented to time Skin: COMMON NORMALS: no rashes or lesions noted GENERAL SKIN EXAM: no rashes or lesions noted Course 2 Vital Signs: Vital signs: Vital Signs Temperature 98.5 F 11/19/23 11:29 Pulse Rate 66 11/19/23 11:29 Respiratory Rate 16 11/19/23 11:29 Blood Pressure 162/111 11/19/23 11:29 Pulse Oximetry 95 11/19/23 13:04 Oxygen Delivery Me thod Room Air 11/19/23 11:29 MDM - SOB/Dyspnea Medical Decision Making No significant findings on laboratories. Chest x-ray shows COPD but no acute infiltrates. I think his COPD is just significantly undertreated we will start him on Spiriva and Symbicort refer him to pulmonology continue to use albuterol but only as a rescue inhaler and does have base for treatment Medical Records I reviewed the patient's medical records. Lab Data I reviewed the patient's lab results. 11/19/23 11:50 11/19/23 11:50 Labs/Radiology: Radiology Impressions Chest X-Ray 11/19/23 11:33 IMPRESSION: Pulmonary emphysema and interstitial lung disease again noted; no acute pulmonary pathology or significant interval change in the lungs. Laboratory Results WBC 4.50 10^3/uL (3.29-11.43) 11/19/23 11:50 RBC 4.41 10^6/uL (3.85-5.65) 11/19/23 11:50 Hgb 13.20 g/dL (11.27-16.99) 11/19/23 11:50 Hct 41.0 % (37-53) 11/19/23 11:50 MCV 93.0 fl (82-101) 11/19/23 11:50 MCH 29.9 pg (27-33) 11/19/23 11:50 MCHC 32.2 g/dL (30-55) 11/19/23 11:50 RDW 14.6 % (12.1-15.1) 11/19/23 11:50 Plt Count 162 10^3/cmm (157-399) 11/19/23 11:50 MPV 10.1 fL (7.4-10.4) 11/19/23 11:50 Neut % (Auto) 71.4 % 11/19/23 11:50 Lymph % (Auto) 20.9 % 11/19/23 11:50 [place] % (Auto) 6.2 % 11/19/23 11:50 Eos % (Auto) 1.1 % 11/19/23 11:50 Baso % (Auto) 0.4 % 11/19/23 11:50 Neut # (Auto) 3.21 10^3/uL (1.8-7.7) 11/19/23 11:50 Lymph # (Auto) 0.9 10^3/uL (0.8-4.8) 11/19/23 11:50 [place] # (Auto) 0.3 10^3/uL (0.2-0.9) 11/19/23 11:50 Eos # (Auto) 0.1 10^3/uL (0.0-0.8) 11/19/23 11:50 Baso # (Auto) 0.0 10^3/uL (0.0-0.1) 11/19/23 11:50 Nucleated RBC % (auto) 0 % 11/19/23 11:50 Nucleated RBCs # 0.0 /100WBC 11/19/23 11:50 PT 13.50 SECONDS (12.1-14.9) 11/19/23 11:50 INR 1.00 (0.8-1.2) 11/19/23 11:50 Sodium 137 mmol/L (136-145) 11/19/23 11:50 Potassium 4.4 mmol/L (3.5-5.1) 11/19/23 11:50 Chloride 104 mmol/L (98-107) 11/19/23 11:50 Carbon Dioxide 22 mmol/L (22-29) 11/19/23 11:50 Anion Gap 15.4 (5-19) 11/19/23 11:50 BUN 13 mg/dL (8-23) 11/19/23 11:50 Creatinine 0.9 mg/dL (0.7-1.2) 11/19/23 11:50 GFR Calculation 85.5 mL/min (90-130) L 11/19/23 11:50 Glucose 100 mg/dL (65-115) 11/19/23 11:50 Calculated Osmolality 284 mOsm/kg (285-295) L 11/19/23 11:50 Calcium 8.8 mg/dL (8.5-10.5) 11/19/23 11:50 Total Bilirubin 0.3 mg/dL (0.15-1.2) 11/19/23 11:50 AST 16 U/L (0-40) 11/19/23 11:50 ALT 6 U/L (0-41) 11/19/23 11:50 Alkaline Phosphatase 114 U/L (40-130) 11/19/23 11:50 Troponin T Baseline 15 ng/L (0-15) 11/19/23 11:50 NT-Pro-B Natriuret Pep 348 pg/mL (0-125) H 11/19/23 11:50 Total Protein 7.1 g/dL (6.6-8.7) 11/19/23 11:50 Albumin 3.9 g/dL (3.5-5.2) 11/19/23 11:50 Globulin 3.2 g/dL (1.3-4.6) 11/19/23 11:50 All radiology interpretation(s) finalized by discharge Discharge Plan Discharge Patient Disposition: Home Clinical Impression: COPD (chronic obstructive pulmonary disease) Condition: Stable Prescriptions: New Spiriva Respimat 1.25 mcg/actuation mist 2 inh inhalation DAILY Qty: 4 0RF Symbicort 80-4.5 mcg/actuation HFA aerosol inhaler 2 inh inhalation BID Qty: 10.2 0RF albuterol sulfate 90 mcg/actuation HFA aerosol inhaler 2 inh INHALATION Q4H PRN (Reason: shortness of breath or wheezing) Qty: 18 0RF No Action bupropion HCl 300 mg tablet extended release 24 hr 300 mg PO DAILY cholecalciferol (vitamin D3) 25 mcg (1,000 unit) capsule 25 mcg PO DAILY cyclobenzaprine 10 mg tablet 10 mg PO TID levetiracetam 750 mg tablet 750 mg PO BID metoprolol tartrate 25 mg tablet 12.5 mg PO BID (DME) Orthopedic Shoes with custom insoles See Rx Instructions .Route .MEDSUPPLY Qty: 1 0RF Rx Instructions: As directed by AMY&O B Complex 1 tab PO DAILY buspirone 15 mg Tablet 15 mg PO BID duloxetine 60 mg Capsule, Delayed Rel Sprinkle 60 mg PO BID [place] 3 1 tab PO DAILY Vitamin B-12 1 tab PO DAILY hydrocodone-acetaminophen 7.5-325 mg tablet 1 tab PO Q6H PRN (Reason: pain) Qty: 14 0RF Discharge Orders: Discharge ED (Routine); Ordered 11/19/23 Ordered By: Joaquín Sommer Referrals: Alisa Kerns MD [Primary Care Provider] - Discharge Diet: Usual diet Discharge Activity: Resume usual activity Patient Instructions: COPD (Chronic Obstructive Pulmonary Disease) (ED), Opioid Safety, Pain Management Activity Restrictions/Additional Instructions: Thank you for choosing [facility] for your healthcare needs today. Please realize this is an emergency room and that we are providing you with a medical screening exam and this may not be complete and all inclusive of all the testing and or work up that you may need to determine your ailment or severity of your illness. It is very important that you follow up as instructed or that you return to the Emergency Department should you have concerns or if your condition changes or worsens in any way. Case management make arrangements for follow-up with pulmonology. Coding Level of Care Code ED Account Manager [employer] for Jamee Ortiz
--- NOTE | 2023-11-19 13:33 | ECG_ITS ---
[facility] Test Date: 2023-11-19 Pat Name: Crow Morales Department: Room: Gender: Male Wheel Inspector: : 1960 Requested By: Binh Hairston Order Number: [id number] Jermaine MD: Clayton Castle M.D. Measurements Intervals [place] Rate: 61 P: 54 AR: 137 QRS: 64 QRSD: 86 T: 62 QT: 451 QTc: 455 Interpretive Statements SINUS RHYTHM Compared to ECG 11/19/2023 11:52:54 No significant changes Electronically Signed On 11-19-2023 13:32:02 STOVE TENDER by Clayton Castle M.D. [id number]
--- NOTE | 2023-11-19 14:53 | PC.SOCIAL ---
[facility] [place] Records sent to [place] for [place] for pulmonology f/u.
--- NOTE | 2023-11-19 14:58 | DCPLANNER ---
Message sent to Dr. kerns's office - follow up -COPD
== END 2023-11-19 13:47 | disposition home or self-care (01) ==
PROVIDERS: Internal Medicine; Emergency Provider Family Medicine; PCP Family Medicine
DX: J44.9 Chronic obstructive pulmonary disease, unspecified (principal); I10 Essential (primary) hypertension; Z86.19 Personal history of other infectious and parasitic diseases; Z72.0 Tobacco use
CPT/HCPCS: 36415; 71045; 80053; 83880; 84484; 85025; 85610; 93005; 99285